=== PATIENT | female | born 1975 | race Caucasian/White ===

== ENCOUNTER 2022-09-17 17:42 | Emergency (ER) | payer MEDICAID ==
[~2022-09-17] VITALS: Ht 182.9 cm; Wt 130.0 kg
[2022-09-17 19:45] VITALS: BP 177/74
[2022-09-17] MEDS ORDERED: IBUPROFEN 400MG TABLET PO ONE (19:45)
[2022-09-17] MEDS ORDERED: IBUP-2028 MT (21:51)
== END 2022-09-17 22:06 | disposition home or self-care (01) ==
LOC: ER 17:42
DX: S83.92XA Sprain of unspecified site of left knee, initial encounter (principal); S83.91XA Sprain of unspecified site of right knee, initial encounter; R07.89 Other chest pain; V49.9XXA Car occupant (driver) (passenger) injured in unspecified traffic accident, initial encounter; Y93.89 Activity, other specified; Y92.89 Other specified places as the place of occurrence of the external cause; Y99.8 Other external cause status
CPT/HCPCS: 71046; 73560; 73590; 81025; 93005; 99284